=== PATIENT | male | born 1990 | race Caucasian/White ===

== ENCOUNTER 2016-08-11 15:40 | Outpatient (CLI) | END 2016-08-11 15:41 | disposition home or self-care (01) | LOC: LAB 15:40 | PROVIDERS: ATTEND Nurse Practitioner Family | DX: E11.9 Type 2 diabetes mellitus without complications (principal) | CPT/HCPCS: 36415; 83036 ==

== ENCOUNTER 2017-03-14 16:17 | Outpatient (CLI) ==
[2017-03-14 16:40] LABS: ALBUMIN 4.1 g/dL (3.4-5.0); ALBUMIN/GLOBULIN RATIO 1.28; ANION GAP 16.1; BILIRUBIN,TOTAL 0.34 mg/dL (0.00-1.20); BUN/CREATININE RATIO 10.97; CALCIUM 9.6 mg/dL (8.2-10.2); CREATININE 0.82 mg/dL (0.60-1.10); POTASSIUM 4.1 mmol/L (3.5-5.1); TOTAL PROTEIN 7.3 g/dL (6.4-8.2)
== END 2017-03-14 16:18 | disposition home or self-care (01) ==
LOC: LAB 16:17
PROVIDERS: ATTEND Nurse Practitioner Family
DX: E11.9 Type 2 diabetes mellitus without complications (principal); F32.9 Major depressive disorder, single episode, unspecified
CPT/HCPCS: 36415; 80053; 83036

== ENCOUNTER 2017-06-06 13:58 | Outpatient (CLI) ==
--- NOTE | 2017-06-06 15:04 | DI ---
EXAM: Three-view left foot COMPARISON: None HISTORY: Pain and swelling FINDINGS: There is no acute fracture or dislocation. Alignment is anatomic. Joint spaces are well p reserved. There is a small calcaneal Achilles spur. There is an incidental os peroneum seen. There m ay be some minimal soft tissue swelling seen laterally. No unexpected radio-opaque foreign bodies. IMPRESSION: 1. No acute osseous abnormality. 2. Minimal soft tissue swelling laterally. 3. Small calcaneal Achilles spur.
== END 2017-06-06 13:59 | disposition home or self-care (01) ==
LOC: RAD 13:58
PROVIDERS: ATTEND Nurse Practitioner Family
DX: M79.672 Pain in left foot (principal)

== ENCOUNTER 2017-06-15 12:53 | Outpatient (CLI) | END 2017-06-15 12:54 | disposition home or self-care (01) | LOC: LAB 12:53 | PROVIDERS: ATTEND Nurse Practitioner Family | DX: E11.9 Type 2 diabetes mellitus without complications (principal) | CPT/HCPCS: 36415; 83036 ==

== ENCOUNTER 2018-09-06 10:33 | Outpatient (CLI) | END 2018-09-06 10:34 | disposition home or self-care (01) | LOC: RHC-LAB 10:33 | PROVIDERS: ATTEND Nurse Practitioner Family | DX: E11.9 Type 2 diabetes mellitus without complications (principal) | CPT/HCPCS: 36415; 80053; 80061; 83036; 84681; 85025 ==

== ENCOUNTER 2018-10-01 09:37 | Outpatient (CLI) | END 2018-10-01 09:38 | disposition home or self-care (01) | LOC: LAB 09:37 | PROVIDERS: ATTEND Family Medicine | DX: E11.65 Type 2 diabetes mellitus with hyperglycemia (principal) | CPT/HCPCS: 36415; 83519; 83525 ==

== ENCOUNTER 2018-10-15 10:52 | Outpatient (CLI) | END 2018-10-15 10:53 | disposition home or self-care (01) | LOC: CAR 10:52 | PROVIDERS: ATTEND Family Medicine | DX: E11.9 Type 2 diabetes mellitus without complications (principal); I49.9 Cardiac arrhythmia, unspecified | CPT/HCPCS: 93005; 93010 ==

== ENCOUNTER 2018-10-23 09:33 | Outpatient (CLI) ==
--- NOTE | 2018-10-25 09:54 | ECHOCOLOR ---
Date of Exam: 10/23/18 Ordering Physician: DR. LORY FERREIRA Reason for Echo: ATRIAL FIBRILLATION M-Mode Normal Adult Results LV Dimensions Normal Adult Results AoV Opening excursions >1.6 >1.6 LVEDD-base- 3.5-5.8 4.2 Ao root dimensions 2.0-3.7 3.2 LVESD-base- 3.1-4.6 L. Atrium dimensions 1.9-3.8 4.0 Post. Wall thickness 0.8-1.1 1.0 IV septum (thickness) 0.7-1.2 1.1 Post. Wall excursion 0.72-1.3 NORMAL Septal motion NORMAL Systolic motion R. Ventricular cavity 1.5-2.0 NORMAL LVEF 60% 55% Paradoxical septal wall motion NORMAL 2-D: 2-D M Mode Echocardiogram was performed using apical four chamber and left parasternal long and short axis views. Mitral, tricuspid and aortic valves appear to be normal. Contractility of the left ventricle seems to be normal, so is the cavity size. Left atrial cavity size and aortic root appear to be normal. There is no pericardial effusion. There is no thrombus noted in the left ventricular or left aortic cavity. No mitral valve prolapse noted. 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 NORMAL LEFT VENTRICULAR CONTRACTILITY 2. BORDERLINE LEFT ATRIAL CAVITY ENLARGEMENT 3. NORMAL VALVULAR FLOW INDICES 4. COLOR FLOW--TRIVIAL MITRAL REGURGITATION/'MILD TRICUSPID REGURGITATION MTDD
== END 2018-10-23 09:34 | disposition home or self-care (01) ==
LOC: CAR 09:33
PROVIDERS: ATTEND Family Medicine
DX: I48.91 Unspecified atrial fibrillation (principal)

== ENCOUNTER 2018-10-28 12:20 | Outpatient (CLI) ==
--- NOTE | 2018-10-30 08:40 | HOLTER ---
PATIENT INFORMATION AND COMMENTS Attending Physician: DR. LORY FERREIRA Indications: UNSPECIFIED ATRIAL FIBRILLATION __ Patient Medications: XARELTO, HUMULIN INSULIN, METFORMIN __ Pre-procedure Summary: Protocol: Standard Heart Rate Started: 10/28/18 1234 Minimum: 47 BPM Weight: 285 LBS Ended: 10/29/18 1234 Maximum: 190 BPM Height: 76" Duration: 24 HOURS Average: 104 BPM _ INTERPRETATIONS/OBSERVATIONS: 1. BASIC RHYTHM: ATRIAL FIBRILLATION, RATE 47 BPM TO 190 BPM, AVERAGE 104 BPM 2. RARE PVC'S 3. COUPLE OF RUNS OF PRUDENCIO'S PHENOMENON NOTED, LASTING 6 TO [address]-T WAVE CHANGES FROM BASELINE 5. NO PAUSES GREATER THAN 2.0 SECONDS 6. ACTIVITY LOG NOT FILLED OUT MTDD
== END 2018-10-28 12:21 | disposition home or self-care (01) ==
LOC: CAR 12:20
PROVIDERS: ATTEND Family Medicine
DX: I48.91 Unspecified atrial fibrillation (principal)
CPT/HCPCS: 93227

== ENCOUNTER 2018-10-30 15:54 | Outpatient (CLI) | END 2018-10-30 15:55 | disposition home or self-care (01) | LOC: RHC-LAB 15:54 → FCC-LAB 15:55 | PROVIDERS: ATTEND Family Medicine | DX: I48.91 Unspecified atrial fibrillation (principal) | CPT/HCPCS: 36415; 84439; 84443; 84480 ==

== ENCOUNTER 2018-12-13 08:55 | Outpatient (CLI) | END 2018-12-13 08:56 | disposition home or self-care (01) | LOC: RHC-LAB 08:55 → FCC-LAB 08:56 | PROVIDERS: ATTEND Family Medicine | DX: E11.9 Type 2 diabetes mellitus without complications (principal); I48.2 Chronic atrial fibrillation | CPT/HCPCS: 36415; 80053; 82043; 83037; 85025 ==

== ENCOUNTER 2019-03-14 11:53 | Outpatient (CLI) | END 2019-03-14 11:54 | disposition home or self-care (01) | LOC: RHC-LAB 11:53 → FCC-LAB 11:54 | PROVIDERS: ATTEND Family Medicine | DX: E11.9 Type 2 diabetes mellitus without complications (principal) | CPT/HCPCS: 36415; 80053; 80061; 83037; 85025 ==